=== PATIENT | female | born 1985 | race Two or more races ===

== ENCOUNTER 2023-05-13 08:45 | Day surgery (SDC) | payer OTHER ==
[~2023-05-13] VITALS: Ht 162.6 cm; Wt 68.0 kg
[~2023-05-13 08:45] MED LIST: LEVOTHYROXINE25 MCG PO; PROAIR RESPICL90 MCG IH; SINGULAIR10 MG PO
== END 2023-05-13 18:50 | disposition home or self-care (01) ==
LOC: CIR.AMB 08:45
PROVIDERS: ATTEND Colon & Rectal Surgery
DX: K64.2 Third degree hemorrhoids (principal); K64.4 Residual hemorrhoidal skin tags; I10 Essential (primary) hypertension; Z20.822 Contact with and (suspected) exposure to COVID-19; Z88.1 Allergy status to other antibiotic agents